=== PATIENT | male | born 1990 | race Caucasian/White ===

== ENCOUNTER 2020-03-25 22:51 | Emergency (ER) | payer SELFPAY ==
[~2020-03-25] VITALS: Ht 170.2 cm; Wt 86.2 kg
[2020-03-25 22:52] VITALS: BP 123/68; Ht 170.2 cm; Wt 86.2 kg
== END 2020-03-26 00:12 | disposition home or self-care (01) ==
LOC: ED 22:51
DX: R11.10 Vomiting, unspecified (principal); R19.7 Diarrhea, unspecified; M79.10 Myalgia, unspecified site; R51.9 Headache, unspecified; Z20.822 Contact with and (suspected) exposure to COVID-19
CPT/HCPCS: U0003